=== PATIENT | female | born 1990 | race Two or more races ===

== ENCOUNTER 2018-04-13 21:02 | Emergency (ER) | payer MEDICAID, OTHER ==
[~2018-04-13] VITALS: Ht 162.6 cm; Wt 89.8 kg
[2018-04-13 21:16] VITALS: BP 100/89
[2018-04-13] MEDS ORDERED: ACETAMINOPHEN EXTRA STRENGTH 500 MG TAB PO ONE (21:20)
--- NOTE | 2018-04-13 21:25 | NUR ---
TO LOBBY A/W BED, AMB, MEDICATED PROTOCOL, PATIENT TOLERATED WELL, ERMD NOTED
--- NOTE | 2018-04-13 22:26 | NUR ---
PT TO ER BED 8
--- NOTE | 2018-04-13 22:30 | NUR ---
27/ CAME IN ED, C/O 05/16 R FOOT PAIN, X5 HRS. REDNESS AND SWELLING NOTED ON R LATERAL FOOT, SLIGHTLY TENDER TO TOUCH. PT UNAWARE IF PT WAS BIT BY INSECT, FELT PAIN TODAY AT WORK AND NOTICED REDNESS. TEMP 103.1 AT TRIAGE, WAS MEDICATED, TEMP 98.8 AT THIS TIME. DENIES HX DENIES RX
[2018-04-14] MEDS ORDERED: KETOROLAC 60 MG/2 ML VIAL IM ONE (00:45)
[2018-04-14 01:25] VITALS: BP 102/63
--- NOTE | 2018-04-14 01:25 | NUR ---
Patient discharged with v/s stable. Written and verbal after care instructions given and explained. Patient alert, oriented and verbalized understanding of instructions. Ambulatory with steady gait. All questions addressed prior to discharge. ID band removed. Patient advised to follow up with PMD. Rx of BACTRIM, MOTRIN, KEFLEX given. Patient educated on indication of medication including possible reaction and side effects. Opportunity to ask questions provided and answered.
== END 2018-04-14 01:05 | disposition home or self-care (01) ==
LOC: MED 21:02
DX: L03.115 Cellulitis of right lower limb (principal); N39.0 Urinary tract infection, site not specified; Z90.49 Acquired absence of other specified parts of digestive tract
CPT/HCPCS: 81002; 81025; 82948; 96372; 99283; J1885